=== PATIENT | female | born 1955 | race Caucasian/White ===

== ENCOUNTER 2018-01-03 12:15 | Outpatient (CLI) | payer BC | END 2018-01-03 12:16 | disposition home or self-care (01) | LOC: BICRAD 12:15 | PROVIDERS: ATTEND Family Medicine | DX: S63.255D Unspecified dislocation of left ring finger, subsequent encounter (principal); R60.0 Localized edema; M19.032 Primary osteoarthritis, left wrist; Z98.890 Other specified postprocedural states ==

== ENCOUNTER 2018-02-06 11:46 | Outpatient (CLI) | payer BC | END 2018-02-06 11:47 | disposition home or self-care (01) | LOC: BICRAD 11:46 | PROVIDERS: ATTEND Family Medicine | DX: S65.902A Unspecified injury of unspecified blood vessel at wrist and hand level of left arm, initial encounter (principal); R22.32 Localized swelling, mass and lump, left upper limb; M79.646 Pain in unspecified finger(s); S91.109A Unspecified open wound of unspecified toe(s) without damage to nail, initial encounter; S63.257A Unspecified dislocation of left little finger, initial encounter; M19.042 Primary osteoarthritis, left hand | CPT/HCPCS: 87070; 87077; 87186; 87205 ==

== ENCOUNTER 2018-11-04 14:31 | Outpatient (CLI) | payer BC ==
--- NOTE | 2018-11-04 16:06 | MMO ---
Bilateral MAMMO Bilat Screen [facility]. CLINICAL HISTORY: Patient is 63 years old and is seen for screening. The patient has the following family history of breast cancer: paternal aunt. The patient has no personal history of cancer. VIEWS: The views performed were: bilateral craniocaudal with tomosynthesis and bilateral mediolateral oblique with tomosynthesis. FILMS COMPARED: The present examination has been compared to prior imaging studies performed at [facility] on 08/13/2003, 08/17/2003, 12/25/2007 and 02/05/2014. MAMMOGRAM FINDINGS: There are scattered fibroglandular densities. There are stable benign appearing calcifications seen in the right breast. There are no suspicious masses, suspicious calcifications, or new areas of architectural distortion. IMPRESSION: THERE IS NO MAMMOGRAPHIC EVIDENCE OF MALIGNANCY. A ROUTINE FOLLOW-UP MAMMOGRAM IN 1 YEAR IS RECOMMENDED. THE RESULTS OF THIS EXAM WERE SENT TO THE PATIENT. ACR BI-RADS Category 2 - Benign finding MAMMOGRAPHY NOTE: 1. A negative mammogram report should not delay a biopsy if a dominant of clinically suspicious mass is present. 2. Approximately 10% to 15% of breast cancers are not detected by mammography. 3. Adenosis and dense breasts may obscure an underlying neoplasm.
--- NOTE | 2018-11-04 16:10 | ULT ---
EXAM: Carotid vascular duplex with color and spectral Doppler imaging: HISTORY: Carotid bruit COMPARISON: None FINDINGS: No significant visual plaque. Right ICA: PSV: 72 cm/s EDV: 8 cm/s ICA/CCA ratio: 0.7 Left ICA: PSV: 58 cm/s EDV: 15 cm/s ICA/CCA ratio: 0.9 Antegrade flow is seen in both vertebral arteries.. IMPRESSION: No evidence for hemodynamically significant ICA stenosis
--- NOTE | 2018-11-04 16:36 | BD ---
Exam: DEXA Bone Density 11/04/18 HISTORY: 63-year-old female for postmenopausal osteoporosis screening. FINDINGS: Lumbar Spine: BMD (g/cm2) T-Score: L1 1.125 1.2 L2 1.127 0.9 L3 1.166 0.7 L4 1.138 0.6 L1-L4 1.137 0.8 Femoral Neck: 0.879 0.3 Total Femur: 1.016 0.6 Impression: Bone mineral density lumbar spine and femoral neck are within normal range. POS: [facility]
== END 2018-11-04 14:32 | disposition home or self-care (01) ==
LOC: BICMAMMO 14:31
PROVIDERS: ATTEND Family Medicine
DX: Z12.31 Encounter for screening mammogram for malignant neoplasm of breast (principal); Z13.820 Encounter for screening for osteoporosis; R09.89 Other specified symptoms and signs involving the circulatory and respiratory systems; Z80.3 Family history of malignant neoplasm of breast
CPT/HCPCS: 77063; 77067; 77080; 93880